=== PATIENT | male | born 2000 | race African-American/Black ===

== ENCOUNTER 2022-06-16 09:23 | Emergency (ER) | payer OTHER ==
[2022-06-16 09:36] VITALS: BP 114/67; PULSE 52; RESP 15; TEMP 97.7; BMI 22.8
[2022-06-16] MEDS ORDERED: IBUPROFEN 600 MG TABLET (FP) PO ONE ×2 (09:47→09:48)
== END 2022-06-16 09:53 | disposition home or self-care (01) ==
LOC: FER 09:23
DX: S00.83XA Contusion of other part of head, initial encounter (principal); W21.05XA Struck by basketball, initial encounter; Z48.02 Encounter for removal of sutures
CPT/HCPCS: 99283-25